=== PATIENT | female | born 1930 | race Two or more races ===

== ENCOUNTER 2017-02-06 11:39 | Inpatient (IN) | payer MEDICARE, MEDICAID ==
[~2017-02-06] VITALS: Ht 165.1 cm; Wt 68.0 kg
[~2017-02-06 11:39] MED LIST: ASPI81TA2 PO; CHOL50006 PO; EZET10TA PO; FAMO-131 PO; LORA1TAB82 PO; PRAM0.253 PO; TRAM50TA2 PO
--- NOTE | 2017-02-06 11:45 | NUR ---
PT TO ER BED 08. [id number] FROM [facility]: EPIGASTRIC PAIN. DENIES N/V. VS WNL. CHANGED TO GOWN. CONNETCED TO MONITOR. CHANGED TO GOWN. SEEN BY ED PROVIDER.
[2017-02-06 12:25] LABS: BASOPHILS # (AUTO) 0.1 /CMM (0.0-0.2); BASOPHILS % (AUTO) 0.7 % (0.0-2.0); EOSINOPHILS # (AUTO) 0.2 /CMM (0.0-0.7); EOSINOPHILS % (AUTO) 1.8 % (0.0-6.0); HEMATOCRIT 38 % (33-45); HEMOGLOBIN 12.7 g/dL (11.5-14.8); LYMPHOCYTES # (AUTO) 2.3 /CMM (0.8-4.8); LYMPHOCYTES % (AUTO) 23.4 % (20.0-44.0); MEAN CORPUSCULAR HEMOGLOBIN 31 PG (26.0-33.0); MEAN CORPUSCULAR HGB CONC 33 g/dl (31.0-36.0); MEAN CORPUSCULAR VOLUME 93 fL (82-100); MONOCYTES # (AUTO) 0.7 /CMM (0.1-1.30); MONOCYTES % (AUTO) 7.4 % (2.0-12.0); NEUTROPHILS # (AUTO) 6.5 /CMM (1.8-8.9); NEUTROPHILS % (AUTO) 66.7 % (43.0-81.0); PLATELET COUNT (AUTO) 266 /CMM (150-450); RDW COEFFICIENT OF VARIATION 12.6 (11.5-15.0); RED BLOOD CELL COUNT(AUTO) 4.07 MIL/uL (4.0-5.2); WHITE BLOOD COUNT (AUTO) 9.8 K/uL (4.3-11.0)
[2017-02-06] MEDS ORDERED: FAMOTIDINE (20 MG) 20 MG TABLET ONE (12:30)
[2017-02-06] MEDS ORDERED: MAG HYDROX/AL HYDROX/SIMETH 30 ML UDC PO ONE (12:30)
[2017-02-06] MEDS ORDERED: FAMOTIDINE/PF INJ 20 MG/2 ML VIAL IV ONE (12:30)
[2017-02-06] MEDS ORDERED: LIDOCAINE VISCOUS 2% UD 15 ML UDC MM ONE (12:30)
[2017-02-06] MEDS ORDERED: MAG HYDROX/AL HYDROX/SIMETH 30 ML UDC ONE (12:31)
[2017-02-06] MEDS ORDERED: LIDOCAINE VISCOUS 2% UD 15 ML UDC ONE (12:31)
--- NOTE | 2017-02-06 12:32 | NUR ---
PEPCID 20MG PO OK PER DR DENNEY.
[2017-02-06 12:35] LABS: CALCIUM, SERUM 9.2 mg/dL (8.5-10.1); CREATININE 0.7 mg/dL (0.6-1.3); POTASSIUM 3.2 mmol/L (3.5-5.1)
[2017-02-06 12:39] LABS: INR 0.98 (0.87-1.13); PROTHROMBIN TIME 10.2 SECS (9.5-12.7)
[2017-02-06 12:41] LABS: ALBUMIN 3.3 g/dL (3.4-5.0); BILIRUBIN,DIRECT 0.1 mg/dL (0.0-0.2); BILIRUBIN,TOTAL 0.3 mg/dL (0.2-1.0); TOTAL PROTEIN, SERUM 6.8 g/dL (6.4-8.2)
[2017-02-06 12:43] LABS: TROPONIN I 0.093 ng/mL (0.00-0.056)
[2017-02-06] MEDS ORDERED: ASPIRIN 325 MG TABLET ONE (13:40)
--- NOTE | 2017-02-06 13:40 | NUR ---
Patient is resting comfortably in bed with eyes closed. Easily aroused. VSS
[2017-02-06] MEDS ORDERED: ASPI-991 PO (13:45)
[2017-02-06] MEDS ORDERED: ATEN25TA PO (13:45)
[2017-02-06] MEDS ORDERED: IRBE1TAB43 PO (13:45)
[2017-02-06] MEDS ORDERED: DONE5TAB3 PO (13:45)
[2017-02-06] MEDS ORDERED: MECL-102 PO (13:45)
[2017-02-06] MEDS ORDERED: ESOM40CA52 PO (13:45)
[2017-02-06] MEDS ORDERED: ASPIRIN 325 MG TABLET PO ONE (14:00)
[2017-02-06] MEDS ORDERED: POTASSIUM CHLORIDE 20 MEQ TAB.PRT.SR PO ONE ×3 (14:30→20:00)
[2017-02-06] MEDS ORDERED: Z GUARD REMEDY 2 OZ OINT TP PRN (15:00)
[2017-02-06] MEDS ORDERED: MAGNESIUM HYDROXIDE 30 ML UDC PO PRN (15:00)
[2017-02-06] MEDS ORDERED: TRAMADOL HCL 50 MG TABLET PO PRN (15:00)
[2017-02-06] MEDS ORDERED: ONDANSETRON HCL/PF 4 MG/2 ML VIAL IVP PRN (15:00)
[2017-02-06] MEDS ORDERED: ACETAMINOPHEN 325 MG TABLET PO PRN (15:00)
[2017-02-06] MEDS ORDERED: MAG HYDROX/AL HYDROX/SIMETH 30 ML UDC PO PRN (15:00)
[2017-02-06] MEDS ORDERED: MECLIZINE HCL 25 MG TABLET PO PRN (15:00)
--- NOTE | 2017-02-06 15:02 | NUR ---
RECEIVED REPORT FROM DIANE LUIS AT ER. PATIENT ARRIVED TO UNIT. PATIENT REQUESTED TO CALL HER GRANDCHILD JEANMARIE AT [phone]. I CALLED, NO ANSWER. WILL TRY AGAIN
[2017-02-06 15:05] VITALS: BP 178/92
--- NOTE | 2017-02-06 15:20 | NUR ---
PATIENT IS ON TELE
[2017-02-06] MEDS: ATENOLOL 25 MG TABLET PO SCH (16:53)
[2017-02-06] MEDS ORDERED: hydrALAZINE HCL 25 MG TABLET PO PRN (17:30)
--- NOTE | 2017-02-06 19:14 | NUR ---
[facility] CALLED WITH CRITICAL VALUE. CALLED DR MCFARLANE. NEW ORDERS RECEIVED. PER DR MCFARLANE, DR GREGORY NEEDS TO BE NOTIFY WELL
--- NOTE | 2017-02-06 19:23 | NUR ---
DR BRI SIMMONS
--- NOTE | 2017-02-06 19:36 | NUR ---
PER DR GREGORY, NLIAMISCBAKARI STRESS TEST FOR 02/07. NPO FROM MIDNIGHT. CONSENT SIGNED
--- NOTE | 2017-02-06 19:38 | NUR ---
REPORT GAVE TO JUNIOR HIGH MATH TEACHER NURSE
--- NOTE | 2017-02-06 19:56 | NUR ---
NOTIFIED DR. GREGORY OF ELEVATED TROPONIN OF 1.970, NO LEXISCAN TOMORROW, RESUME DIET AND NEW ORDER OF KCL 4O MEQ TAB PO X1 NOW. ORDERS NOTED AND CARRIED OUT.
[2017-02-06 20:00] VITALS: BP 134/82
[2017-02-06] MEDS ORDERED: ENOXAPARIN SODIUM 80 MG/0.8 ML DISP.SYRIN SQ ONE (20:00)
--- NOTE | 2017-02-06 20:00 | NUR ---
PATIENT IN BED, ALERT AND ORIENTED X 3, CROATIAN SPEAKING ONLY, CALM, NO SOB, NO RESPIRATORY DISTRESS, NO CHEST PAIN, DENIES ANY OTHER PAIN, TOLERATING ROOM AIR, RIGHT HAND #20 GAUGE SALINE LOCK IS PATENT AND INTACT, ABLE TO AMBULATE TO THE TOILET WITH ASSISTANCE, KEPT SAFE AND COMFORTABLE, CALL LIGHT WITHIN REACH, FAMILY AT THE BEDSIDE.
[2017-02-06 20:34] VITALS: BP 134/82
[2017-02-06] MEDS: LOSARTAN POTASSIUM 50 MG TABLET PO SCH (20:36)
[2017-02-06] MEDS: CARVEDILOL 6.25 MG TABLET PO SCH (20:37)
--- NOTE | 2017-02-06 20:39 | NUR ---
COREG 6.25 MG PO HELD, HR 57
[2017-02-06] MEDS: ATORVASTATIN 40 MG TABLET PO SCH (21:09)
[2017-02-06] MEDS: HYDROCODONE/APAP 5/325MG 1 EACH TABLET PO PRN (23:21)
[2017-02-07] VITALS (48 sets, daily range): BP systolic 106–153; BP diastolic 51–105
--- NOTE | 2017-02-07 00:24 | NUR ---
PATIENT IS ALERT AND AWAKE, RECEIVED NORCO FOR PAIN TO RIGHT UPPER BACK, VERBALIZED RELIEF FROM PAIN. WILL CONTINUE TO MONITOR.
[2017-02-07] MEDS: HYDROCODONE/APAP 5/325MG 1 EACH TABLET PO PRN (04:54)
--- NOTE | 2017-02-07 06:26 | NUR ---
CORRECTION TO VITAL SIGNS 02/07/17 0000, O2 SAT IS 96%
--- NOTE | 2017-02-07 06:48 | NUR ---
PATIENT HAS NAUSEA EPISODE X1, NO VOMITING, RETCHING. GIVEN ZOFRAN 4MG IVP PRN, FALL RISK, GETTING OUT OF BED UNASSISTED. MADE COMFORTABLE, CALL LIGHT WITHIN REACH.
[2017-02-07 06:50] LABS: BASOPHILS % (AUTO) 0.2 % (0.0-2.0); EOSINOPHILS # (AUTO) 0.2 /CMM (0.0-0.7); EOSINOPHILS % (AUTO) 2.1 % (0.0-6.0); HEMATOCRIT 40 % (33-45); HEMOGLOBIN 13.7 g/dL (11.5-14.8); LYMPHOCYTES # (AUTO) 2.5 /CMM (0.8-4.8); LYMPHOCYTES % (AUTO) 22.1 % (20.0-44.0); MEAN CORPUSCULAR HEMOGLOBIN 32 PG (26.0-33.0); MEAN CORPUSCULAR HGB CONC 34 g/dl (31.0-36.0); MEAN CORPUSCULAR VOLUME 94 fL (82-100); MONOCYTES # (AUTO) 0.8 /CMM (0.1-1.30); MONOCYTES % (AUTO) 7.3 % (2.0-12.0); NEUTROPHILS # (AUTO) 7.8 /CMM (1.8-8.9); NEUTROPHILS % (AUTO) 68.3 % (43.0-81.0); PLATELET COUNT (AUTO) 267 /CMM (150-450); RDW COEFFICIENT OF VARIATION 13.3 (11.5-15.0); WHITE BLOOD COUNT (AUTO) 11.4 K/uL (4.3-11.0)
--- NOTE | 2017-02-07 06:57 | NUR ---
PATIENT IN BED, ALERT AND AWAKE, RESTING, NOT IN APPARENT DISTRESS, PROVIDED EMESIS BAG BY THE BEDSIDE, KEPT SAFE AND COMFORTABLE, CALL LIGHT WITHIN REACH.
--- NOTE | 2017-02-07 07:22 | NUR ---
RN OPEN NOTES RECEIVED REPORT FROM DISHWASHER PREPARER NURSE. WILL CONTINUE TO MONITOR AND ASSESS PATIENT
[2017-02-07 07:24] LABS: CALCIUM, SERUM 9.1 mg/dL (8.5-10.1); CREATININE 0.8 mg/dL (0.6-1.3); MAGNESIUM 1.8 mg/dL (1.8-2.4)
[2017-02-07 07:26] LABS: THYROID STIMULATING HORMONE 3.449 uIU/mL (0.358-3.74)
[2017-02-07] MEDS: PANTOPRAZOLE 40 MG TABLET.DR PO SCH (07:30)
--- NOTE | 2017-02-07 07:34 | NUR ---
SPOKE WITH DR GREGORY REGRADING CRITICAL VALUE TROPONIN. NO NEW ORDERS RECEIVED. DR GREGORY WILL SEE THE PATIENT TODAY
[2017-02-07 07:51] LABS: TROPONIN I 7.595 ng/mL (0.00-0.056)
--- NOTE | 2017-02-07 08:52 | NUR ---
GRANDDAUGHTER JEANMARIE NOTIFIED REGARDING TRANSFERRING THE PATIENT TO ICU
[2017-02-07] MEDS ORDERED: IRBESARTAN PO SCH (09:00)
[2017-02-07] MEDS ORDERED: HYDROCHLOROTHIAZIDE PO SCH (09:00)
[2017-02-07] MEDS ORDERED: HYDROCHLOROTHIAZIDE 25 MG TABLET PO SCH (09:00)
[2017-02-07] MEDS ORDERED: NTG 50 MG/D5W250 ML BOTTL 50 MG/250 ML BTL IV SCH (09:00)
[2017-02-07] MEDS: DONEPEZIL 5 MG TABLET PO SCH (09:00)
[2017-02-07] MEDS: ATENOLOL 25 MG TABLET PO SCH (09:00)
[2017-02-07] MEDS ORDERED: IRBESARTAN (150MG) 150 MG TABLET PO SCH (09:00)
[2017-02-07] MEDS ORDERED: ASPIRIN EC 81 MG TABLET.DR PO SCH (09:00)
--- NOTE | 2017-02-07 09:05 | NUR ---
REPORT GAVE TO JANELLE MCFARLANE IN ICU
--- NOTE | 2017-02-07 09:20 | NUR ---
PATIENT TRANSPORTED TO ICU. SINUS RHYTHM ON TRANSFER.
--- NOTE | 2017-02-07 09:30 | NUR ---
high school agriculture teacher received pt from 3w stable complains of epigastric pain11/25 , ao x3, started pt on 2l nc o2 elevate hob reposition pt, will start nitro iv drip as ordered and heparine once med is available from pharmacy, pt does not want pain med, explained pt the benefits of pain med for her heart condition, pt still refused will continue to monitor. 0950 started pt on nitro drip and bolus of heparine and the drip will be given by Grecia Rn, for continuity of care.
[2017-02-07] MEDS ORDERED: NTG 50 MG/D5W250 ML BOTTL 250 ML IV PRN (10:00)
[2017-02-07] MEDS ORDERED: HEPARIN SODIUM, PORCINE 5000 UNITS/1 ML VIAL IV ONE (10:00)
[2017-02-07] MEDS: HEPARIN INFUSION/D5W 500 ML IV PRN (10:06)
[2017-02-07] MEDS: LORAZEPAM 1 MG TABLET PO SCH (10:15)
[2017-02-07] MEDS: CARVEDILOL 6.25 MG TABLET PO SCH ×2 (10:15→20:20)
[2017-02-07] MEDS: LOSARTAN POTASSIUM 50 MG TABLET PO SCH ×2 (10:15→17:48)
[2017-02-07] MEDS ORDERED: IV SET PRIMARY PUMP SET 1 EA INFUS.SET MC ONE (10:18)
[2017-02-07] MEDS: IV NS 0.9% 1,000 ML IV PRN (10:23)
[2017-02-07] MEDS ORDERED: MORPHINE SULFATE INJ 2 MG/ML DISP.SYRIN IV PRN (11:30)
--- NOTE | 2017-02-07 11:41 | NUR ---
PROFESSIONAL BENEFITS SALES CONSULTANT Dr. Lala contacted regarding pt condition and latest labs troponin critical trending down, ordered to continue with the same orders and meds and he will see pt once he comes to the hospital, pt in bed resting denies of any pain at this time, iv meds are infusing as ordered will continue to monitor. pt voided 200cc yellow clear urine. fall precautions taken call light w/ in reach family granddaughter at bedside.
--- NOTE | 2017-02-07 18:44 | NUR ---
02/07/17 PER CARDIO- DR GREGORY PT NEEDS HIGHER LEVEL OF CARE - HEART CATH, PT IS SCHEDULE AT 1530, ARRANGED TRANSPORTATION VIA [facility] LOGISTICS ANALYTICS MANAGER AT 1230, NURSE TO GIVE REPORT TO [phone].
--- NOTE | 2017-02-07 18:45 | NUR ---
SALES ADVISORY MANAGER PT IN BED ATE DINNER NO DISTRESS NOTED PT DOES NOT COMPLAIN OF ANY PAIN AT THIS TIME OR DURING SHIFT, ALL PT NEEDS MEET PT REFUSED BED BATH, WILL CONTINUE TO MONITOR FALL PRECAUTION TAKEN CALL LIGHT W/ IN REACH WILL CONTINUE TO MONITOR.
--- NOTE | 2017-02-07 20:37 | NUR ---
CYBER SECURITY MANAGER NOTES RECEIVED PT IN BED, AWAKE, A/O X4. TELE READS SR AT 67 BPM. ON O2 VIA NC AT 2LPM, CHRIS WELL, PT DENIES CHEST PAIN. IV SITES AT RIGHT HAND, RIGHT WRIST AND LEFT AC, RUNNING HEPARIN, NITROGLYCERIN AND NS. SKIN IS INTACT. GRANDDAUGHTER AT BEDSIDE. ALL QUESTIONS ANSWERED AND NEEDS MET, CALL LIGHT WITHIN REACH, SIDE RAILS X2.
[2017-02-07] MEDS: ATORVASTATIN 40 MG TABLET PO SCH (21:15)
[2017-02-08] VITALS (14 sets, daily range): BP systolic 112–148; BP diastolic 44–96
[2017-02-08 05:01] LABS: BASOPHILS % (AUTO) 0.2 % (0.0-2.0); EOSINOPHILS # (AUTO) 0.2 /CMM (0.0-0.7); EOSINOPHILS % (AUTO) 1.7 % (0.0-6.0); HEMATOCRIT 37 % (33-45); HEMOGLOBIN 12.3 g/dL (11.5-14.8); LYMPHOCYTES % (AUTO) 25.2 % (20.0-44.0); MEAN CORPUSCULAR HEMOGLOBIN 32 PG (26.0-33.0); MEAN CORPUSCULAR HGB CONC 34 g/dl (31.0-36.0); MEAN CORPUSCULAR VOLUME 94 fL (82-100); MONOCYTES # (AUTO) 0.9 /CMM (0.1-1.30); MONOCYTES % (AUTO) 7.5 % (2.0-12.0); NEUTROPHILS # (AUTO) 7.8 /CMM (1.8-8.9); NEUTROPHILS % (AUTO) 65.4 % (43.0-81.0); PLATELET COUNT (AUTO) 240 /CMM (150-450); RDW COEFFICIENT OF VARIATION 13.7 (11.5-15.0); RED BLOOD CELL COUNT(AUTO) 3.88 MIL/uL (4.0-5.2); WHITE BLOOD COUNT (AUTO) 11.9 K/uL (4.3-11.0)
[2017-02-08] MEDS: IV NS 0.9% 1,000 ML IV PRN (05:05)
[2017-02-08 05:15] LABS: CALCIUM, SERUM 8.8 mg/dL (8.5-10.1); CREATININE 0.7 mg/dL (0.6-1.3); POTASSIUM 3.5 mmol/L (3.5-5.1)
--- NOTE | 2017-02-08 07:57 | NUR ---
ICU/RN INITIAL NOTES,AM RECEIVED REPORT FROM NIGHT NURSE. PT RESTING IN BED COMFORTABLY, ALERT, AWAKE, ORIENTED. PT SIERRA LEONEAN SPEAKING ONLY. PT ON NASAL CANULA, 2 LITERS, NO DISTRESS NOTED AT THIS TIME. PT ON TELE, SINUS. PT SCHEDULED TO BE TRANSFERRED TO [facility] FOR CARDIAC CATH, WILL PREPARE ALL DISCHARGE PAPERS. PT ON HEPARIN DRIP, NITRO DRIP AND IV FLUIDS ORDERED. WILL TITRATE APPROPRIATE PER ORDERS. ALL NEEDS WILL BE MET, SAFETY MEASURES TAKEN, BED IN LOW POSITION, SIDE RIALS UP, CALL LIGHT WITHIN REACH.
[2017-02-08] MEDS: LOSARTAN POTASSIUM 50 MG TABLET PO SCH (08:17)
[2017-02-08] MEDS: LORAZEPAM 1 MG TABLET PO SCH (08:18)
[2017-02-08] MEDS: DONEPEZIL 5 MG TABLET PO SCH (08:18)
[2017-02-08] MEDS: PANTOPRAZOLE 40 MG TABLET.DR PO SCH (08:18)
[2017-02-08] MEDS: CARVEDILOL 6.25 MG TABLET PO SCH (08:19)
[2017-02-08] MEDS: HEPARIN INFUSION/D5W 500 ML IV PRN (08:26)
[2017-02-08] MEDS ORDERED: ASPIRIN EC 81 MG TABLET.DR PO SCH (09:00)
--- NOTE | 2017-02-08 12:30 | NUR ---
ICU/RN: REPORT ENDORSED TO JANELLE LAWRENCE AT [facility]. PT WILL BE TRANSFERRED THERE VIA AMBULANCE. WILL COMPLETE ALL D/C PAPERS.
--- NOTE | 2017-02-08 13:29 | NUR ---
ICU/RN: AMBULANCE AT BEDSIDE TO TRANSFER PT TO [facility]. REPORT ENDORSED TO RN, PT WILL BE TRANSFERRED VIA ACLS GUIDELINES WITH HEPARIN AND NITRO INFUSING ORDERED. ALL FORMS SINGED, GRANDDAUGHTER CALLED TO INFORM OF TRANSFER HOWEVER NO ANSWER. BELONGINGS CHECKED AND FORM SIGNED AND ALL SENT WITH PT. PT CONTINUES TO BE NPO FOR PROCEDURE. ALL NEEDS ATTENDED TO, SAFETY MEASURES TAKEN.
== END 2017-02-08 13:05 | disposition short-term general hospital (02) | DRG 281 ==
LOC: ER 11:40 → TELE 14:14 → ICU 02-07 09:32
PROVIDERS: ADMIT Contractor; ATTEND Contractor
DX: I21.4 Non-ST elevation (NSTEMI) myocardial infarction (principal); E44.1 Mild protein-calorie malnutrition; I10 Essential (primary) hypertension; E78.5 Hyperlipidemia, unspecified; K57.90 Diverticulosis of intestine, part unspecified, without perforation or abscess without bleeding; E87.6 Hypokalemia; K21.9 Gastro-esophageal reflux disease without esophagitis; Z79.899 Other long term (current) drug therapy; E88.09 Other disorders of plasma-protein metabolism, not elsewhere classified; Z68.25 Body mass index [BMI] 25.0-25.9, adult; I25.10 Atherosclerotic heart disease of native coronary artery without angina pectoris
CPT/HCPCS: 36415; 71010-TC; 80048-TC; 80061-TC; 80076-TC; 83690-TC; 83735-TC; 84100-TC; 84443-TC; 84484-TC; 85025-TC; 85730-TC; 93307-TC; 94799-TC; A4606; J1644; J1650; J2405; J3490; J7030; Z7610

== ENCOUNTER 2017-02-22 16:18 | Inpatient (IN) | payer MEDICARE, MEDICAID ==
[~2017-02-22] VITALS: Ht 152.4 cm; Wt 72.1 kg
[~2017-02-22 16:18] MED LIST changes: +ASPI-991 PO; -ASPI81TA2 PO; +ATEN25TA PO; -CHOL50006 PO; +DONE5TAB3 PO; +ESOM40CA52 PO; -EZET10TA PO; -FAMO-131 PO; +IRBE1TAB43 PO; +MECL-102 PO; -PRAM0.253 PO
--- NOTE | 2017-02-22 16:27 | NUR ---
Bibdtr- pt was sent by armored car driver for eval. Patient is aao4, appears in no apparent distress, respiration even and unlabored. No chest pain, nno sob. Skin is warm to touch and non diaphoretic. Patient is afebrile. vss. will cont to monitor
--- NOTE | 2017-02-22 16:40 | NUR ---
iv accessed to [facility]. blood sample sent to lab
[2017-02-22 16:52] LABS: BASOPHILS % (AUTO) 0.4 % (0.0-2.0); EOSINOPHILS # (AUTO) 0.3 /CMM (0.0-0.7); EOSINOPHILS % (AUTO) 2.9 % (0.0-6.0); HEMATOCRIT 39 % (33-45); HEMOGLOBIN 13.1 g/dL (11.5-14.8); LYMPHOCYTES # (AUTO) 2.7 /CMM (0.8-4.8); LYMPHOCYTES % (AUTO) 25.8 % (20.0-44.0); MEAN CORPUSCULAR HEMOGLOBIN 32 PG (26.0-33.0); MEAN CORPUSCULAR HGB CONC 34 g/dl (31.0-36.0); MEAN CORPUSCULAR VOLUME 93 fL (82-100); MONOCYTES # (AUTO) 0.8 /CMM (0.1-1.30); MONOCYTES % (AUTO) 7.9 % (2.0-12.0); NEUTROPHILS # (AUTO) 6.8 /CMM (1.8-8.9); PLATELET COUNT (AUTO) 319 /CMM (150-450); RDW COEFFICIENT OF VARIATION 12.2 (11.5-15.0); RED BLOOD CELL COUNT(AUTO) 4.12 MIL/uL (4.0-5.2); WHITE BLOOD COUNT (AUTO) 10.6 K/uL (4.3-11.0)
[2017-02-22] MEDS ORDERED: MAG HYDROX/AL HYDROX/SIMETH 30 ML UDC ONE (16:56)
[2017-02-22] MEDS ORDERED: MAG HYDROX/AL HYDROX/SIMETH 30 ML UDC PO ONE (17:00)
[2017-02-22 17:05] LABS: TROPONIN I < 0.017 ng/mL (0.00-0.056)
[2017-02-22 17:08] LABS: INR 0.96 (0.87-1.13)
[2017-02-22 17:14] LABS: ALANINE AMINOTRANSFERASE 21 U/L (12-78); ALBUMIN 3.4 g/dL (3.4-5.0); ALKALINE PHOSPHATASE 69 U/L (46-116); ASPARTATE AMINOTRANSFERASE 15 U/L (15-37); B-TYPE NATRIURETIC PEPTIDE 776 PG/ML (0-125); BILIRUBIN,TOTAL 0.3 mg/dL (0.2-1.0); CALCIUM, SERUM 9.7 mg/dL (8.5-10.1); CARBON DIOXIDE 30 mmol/L (21-32); CHLORIDE 102 mmol/L (98-107); CREATININE 0.7 mg/dL (0.6-1.3); GLUCOSE 115 mg/dL (74-106); POTASSIUM 3.6 mmol/L (3.5-5.1); SODIUM SERUM 137 mmol/L (136-145); TOTAL PROTEIN, SERUM 7.3 g/dL (6.4-8.2); UREA NITROGEN, BLOOD 11 mg/dL (7-18)
[2017-02-22] MEDS ORDERED: IV NS 0.9% 250 ML IV ONE (17:44)
[2017-02-22] MEDS ORDERED: IOHEXOL-300 100 ML VIAL IV ONE (17:44)
--- NOTE | 2017-02-22 17:48 | NUR ---
Patient is resting comfortably in bed .VSS
--- NOTE | 2017-02-22 18:24 | NUR ---
PAGED DR WHITAKER FOR CALL BACK
--- NOTE | 2017-02-22 19:03 | NUR ---
REPORT GIVEN TO NURSE MAEVE FOR ALBERTA
[2017-02-22 19:18] LABS: APPEARANCE,URINE Clear (CLEAR); BILIRUBIN,URINE Negative (NEGATIVE); BLOOD, URINE Small Ery/uL (NEGATIVE); COLOR,URINE Yellow (YELLOW); KETONES,URINE Negative (NEGATIVE); LEUKOCYTE ESTERASE ,URINE Small (NEGATIVE); NITRITE, URINE Negative (NEGATIVE); PROTEIN,URINE Negative (NEGATIVE); UGLUCOSE Negative (NEGATIVE); UROBILINOGEN,URINE 0.2 EU/dL (0.2)
[2017-02-22 19:28] LABS: BACTERIA,URINE Few /HPF (None Seen); MUCUS,URINE Few /LPF (None Seen); SQUAMOUS EPITHELIAL CELL,UR Moderate /HPF (None Seen); URINE AMORPHOUS URATE Few /HPF (None Seen)
--- NOTE | 2017-02-22 20:01 | NUR ---
317 TELE NEGATIVE PRESSURE ISOLATION ROOM
--- NOTE | 2017-02-22 20:21 | NUR ---
PT LYING IN BED IN NO APPARENT DISTRESS, PT ON MONITOR, VSS, WILL CONTINUE TO MONITOR.
[2017-02-22] MEDS ORDERED: NITROGLYCERIN PACKET 1 GM PACKET TD PRN (21:00)
[2017-02-22] MEDS ORDERED: ZOLPIDEM TARTRATE 5 MG TABLET PO PRN (21:00)
[2017-02-22] MEDS ORDERED: ACETAMINOPHEN 325 MG TABLET PO PRN (21:00)
[2017-02-22] MEDS ORDERED: NITROGLYCERIN 0.4 MG/TAB BOTTLE SL PRN (21:00)
[2017-02-22] MEDS ORDERED: MAGNESIUM HYDROXIDE 30 ML UDC PO PRN (21:00)
[2017-02-22] MEDS ORDERED: MECLIZINE HCL 25 MG TABLET PO PRN (21:00)
[2017-02-22] MEDS ORDERED: MAG HYDROX/AL HYDROX/SIMETH 30 ML UDC PO PRN (21:00)
[2017-02-22] MEDS ORDERED: Z GUARD REMEDY 2 OZ OINT TP PRN (21:00)
[2017-02-22] MEDS ORDERED: HYDROCODONE/APAP 5/325MG 1 EACH TABLET PO PRN (21:00)
[2017-02-22] MEDS ORDERED: MORPHINE SULFATE INJ 2 MG/ML DISP.SYRIN IV PRN (21:00)
[2017-02-22] MEDS ORDERED: ENOXAPARIN SODIUM 40 MG/0.4 ML DISP.SYRIN SQ ONE (21:04)
[2017-02-22 21:30] VITALS: BP 129/74
--- NOTE | 2017-02-22 21:30 | NUR ---
CRABBER - ADMISSION NOTES RECEIVED PATIENT FROM E.R. ALERT AND ORIENTED X3 SIERRA LEONEAN SPEAKING BUT UNDERSTANDS A LITTLE BIT OF DIVEHI. NO S/S OF SOB NOTED. PATIENT DENIES ANY CHEST PAIN. BLUE PHONE USED AND SPOKE TO AMADA #[id number]. ADMISSION HISTORY. INSTRUCTED PATIENT TO USE CALL LIGHT WHEN ASSISTANCE IS NEEDED. TELE READING OF SR 80'S. WILL CONTINUE TO MONITOR PATIENT.
[2017-02-22] MEDS: ENOXAPARIN SODIUM 40 MG/0.4 ML DISP.SYRIN SQ SCH (22:14)
[2017-02-23] VITALS: BP 99/48
[2017-02-23 01:30] VITALS: BP 122/67
[2017-02-23 03:12] LABS: BASOPHILS % (AUTO) 0.4 % (0.0-2.0); EOSINOPHILS # (AUTO) 0.4 /CMM (0.0-0.7); EOSINOPHILS % (AUTO) 3.8 % (0.0-6.0); HEMATOCRIT 39 % (33-45); HEMOGLOBIN 13.1 g/dL (11.5-14.8); LYMPHOCYTES % (AUTO) 25.4 % (20.0-44.0); MEAN CORPUSCULAR HEMOGLOBIN 32 PG (26.0-33.0); MEAN CORPUSCULAR HGB CONC 34 g/dl (31.0-36.0); MEAN CORPUSCULAR VOLUME 94 fL (82-100); MONOCYTES # (AUTO) 0.8 /CMM (0.1-1.30); MONOCYTES % (AUTO) 6.8 % (2.0-12.0); NEUTROPHILS # (AUTO) 7.4 /CMM (1.8-8.9); NEUTROPHILS % (AUTO) 63.6 % (43.0-81.0); PLATELET COUNT (AUTO) 309 /CMM (150-450); RDW COEFFICIENT OF VARIATION 13.6 (11.5-15.0); RED BLOOD CELL COUNT(AUTO) 4.12 MIL/uL (4.0-5.2); WHITE BLOOD COUNT (AUTO) 11.7 K/uL (4.3-11.0)
[2017-02-23 03:26] LABS: ALANINE AMINOTRANSFERASE 22 U/L (12-78); ALBUMIN 3.1 g/dL (3.4-5.0); ALKALINE PHOSPHATASE 63 U/L (46-116); ASPARTATE AMINOTRANSFERASE 13 U/L (15-37); BILIRUBIN,TOTAL 0.4 mg/dL (0.2-1.0); CALCIUM, SERUM 9.3 mg/dL (8.5-10.1); CARBON DIOXIDE 28 mmol/L (21-32); CHLORIDE 103 mmol/L (98-107); CREATININE 0.8 mg/dL (0.6-1.3); GLUCOSE 114 mg/dL (74-106); MAGNESIUM 1.7 mg/dL (1.8-2.4); PHOSPHORUS 3.3 mg/dL (2.5-4.9); POTASSIUM 3.7 mmol/L (3.5-5.1); SODIUM SERUM 140 mmol/L (136-145); TOTAL PROTEIN, SERUM 6.7 g/dL (6.4-8.2); UREA NITROGEN, BLOOD 11 mg/dL (7-18)
--- NOTE | 2017-02-23 07:25 | NUR ---
CUSTOM SEAMSTRESS OPEN NOTES RECEIVED REPORT FROM GEAR STRAIGHTENER NURSE. PATIENT IS IN BED, AOX3. MONGOLIAN PATIENT. NO SIGNS AND SYMPTOMS OF DISTRESS. PATIENT IS ON TELE MONITORING SR WITH PVC 65 BMP. WILL CONTINUE TO EVALUATE AND MONITOR PATIENT CONDITION.
[2017-02-23 08:00] VITALS: BP 125/70
[2017-02-23] MEDS ORDERED: ATENOLOL 25 MG TABLET PO SCH (09:00)
[2017-02-23] MEDS: LORAZEPAM 1 MG TABLET PO SCH (09:04)
[2017-02-23] MEDS: ASPIRIN EC 81 MG TABLET.DR PO SCH (09:04)
[2017-02-23] MEDS: DONEPEZIL 5 MG TABLET PO SCH (09:05)
[2017-02-23] MEDS: PANTOPRAZOLE 40 MG VIAL IV SCH (09:05)
[2017-02-23] MEDS ORDERED: Magnesium 1 GM/2 ML VIAL IV ONE (10:30)
[2017-02-23] MEDS ORDERED: Magnesium 1GM/D5W 100ML PREMIX PIGGYBACK IV ONE (11:00)
[2017-02-23] MEDS ORDERED: IRBESARTAN PO SCH (11:30)
[2017-02-23] MEDS ORDERED: HYDROCHLOROTHIAZIDE PO SCH (11:30)
[2017-02-23 12:00] VITALS: BP 105/58
[2017-02-23] MEDS ORDERED: IV SET PRIMARY PUMP SET 1 EA INFUS.SET MC ONE (12:25)
[2017-02-23] MEDS ORDERED: IV NS 0.9% 250 ML IV ONE (12:25)
[2017-02-23] MEDS ORDERED: SECONDARY IV SET 1 EA INFUS.SET MC ONE (12:26)
[2017-02-23] MEDS ORDERED: SET RED CAP 1 EA INFUS.SET MC ONE (12:26)
[2017-02-23] MEDS: Magnesium 1GM/D5W 100ML PREMIX 100 ML IV SCH ×2 (12:34→13:37)
[2017-02-23] MEDS: CLOPIDOGREL BISULFATE 75 MG TABLET PO SCH (13:37)
[2017-02-23 16:00] VITALS: BP 111/64
--- NOTE | 2017-02-23 18:41 | NUR ---
RN NOTES PATIENT IS IN BED, AWAKE, ALERT AND ORIENTED TO NAME, TIME AND PLACE. PATIENT SPEAKS KHMER ONLY. MAGNESIUM REPLACED. URINE CULTURE COLLECTED. NO SIGNIFICANT CHANGES NOTED THROUGHOUT MY SHIFT. ALL NEEDS ANTICIPATED. NURSING CARE RENDERED. KEPT CLEAN AND DRY. WILL ENDORSE TO THE LOCAL BULK DRIVER NURSE.
--- NOTE | 2017-02-23 19:30 | NUR ---
RN NOTE; RECEIVED PT IN BED AWAKE AND ALERT. BREATHING EVENLY. NO SOB. NAD. NO C/O CHEST PAIN. NEEDS ATTENDED . ASSISTED W/ ADLS. CALL LIGHT WITHIN REACH. WILL CONT TO MONITOR.
[2017-02-23 20:00] VITALS: BP 114/73
[2017-02-23] MEDS: CARVEDILOL 6.25 MG TABLET PO SCH (21:22)
[2017-02-23] MEDS: ENOXAPARIN SODIUM 40 MG/0.4 ML DISP.SYRIN SQ SCH (21:26)
[2017-02-24] VITALS: BP 125/60
[2017-02-24 04:00] VITALS: BP 101/46
--- NOTE | 2017-02-24 06:29 | NUR ---
RN NOTE; PT IN BED SLEEPING , AROUSES EASILY. BREATHING EVENLY/. NO SOB. DENIED CHEST PAIN. W/ OCCASIONAL C/O MILD ABD PAIN. HEART MONITOR IN PLACE READING SR. NO ACUTE CHANGES OVER THE NIGHT. NEEDS ATTENDED. CALL LIGHT WITHIN REACH. WILL CONT TO MONITOR AND WILL ENDORSE TO AM SHIFT FOR ALBERTA .
[2017-02-24 06:51] LABS: BASOPHILS % (AUTO) 0.3 % (0.0-2.0); EOSINOPHILS # (AUTO) 0.3 /CMM (0.0-0.7); EOSINOPHILS % (AUTO) 3.6 % (0.0-6.0); HEMATOCRIT 40 % (33-45); HEMOGLOBIN 13.5 g/dL (11.5-14.8); LYMPHOCYTES # (AUTO) 2.8 /CMM (0.8-4.8); LYMPHOCYTES % (AUTO) 28.8 % (20.0-44.0); MEAN CORPUSCULAR HEMOGLOBIN 32 PG (26.0-33.0); MEAN CORPUSCULAR HGB CONC 34 g/dl (31.0-36.0); MEAN CORPUSCULAR VOLUME 95 fL (82-100); MONOCYTES # (AUTO) 0.6 /CMM (0.1-1.30); MONOCYTES % (AUTO) 6.5 % (2.0-12.0); NEUTROPHILS # (AUTO) 5.9 /CMM (1.8-8.9); NEUTROPHILS % (AUTO) 60.8 % (43.0-81.0); PLATELET COUNT (AUTO) 332 /CMM (150-450); RDW COEFFICIENT OF VARIATION 13.6 (11.5-15.0); RED BLOOD CELL COUNT(AUTO) 4.23 MIL/uL (4.0-5.2); WHITE BLOOD COUNT (AUTO) 9.6 K/uL (4.3-11.0)
[2017-02-24 06:55] LABS: CALCIUM, SERUM 9.4 mg/dL (8.5-10.1); CARBON DIOXIDE 31 mmol/L (21-32); CHLORIDE 102 mmol/L (98-107); CREATININE 0.8 mg/dL (0.6-1.3); GLUCOSE 112 mg/dL (74-106); PHOSPHORUS 3.5 mg/dL (2.5-4.9); POTASSIUM 4.3 mmol/L (3.5-5.1); SODIUM SERUM 140 mmol/L (136-145); UREA NITROGEN, BLOOD 11 mg/dL (7-18)
--- NOTE | 2017-02-24 07:12 | NUR ---
RN OPEN NOTES RECEIVED REPORT FROM CAUSTICS LOADER NURSE. PATIENT IS IN BED, AWAKE AND ALERT. DANISH SPEAKER ONLY. PATIENT IS ON TELE MONITOR SINUS RHYTHM 61. BED IN LOW POSITION, LOCKED AND 2 SIDE RAILS ARE UP. IV SITE IS INTACT AND PATENT. PENDING GI CONSULT. WILL CONTINUE TO MONITOR AND ASSESS PATIENT DURING MY SHIFT.
[2017-02-24] MEDS: PANTOPRAZOLE 40 MG VIAL IV SCH (07:57)
[2017-02-24 08:00] VITALS: BP 135/66
[2017-02-24] MEDS: CARVEDILOL 6.25 MG TABLET PO SCH ×2 (08:00→20:43)
[2017-02-24] MEDS: DONEPEZIL 5 MG TABLET PO SCH (08:00)
[2017-02-24] MEDS: ASPIRIN EC 81 MG TABLET.DR PO SCH (08:00)
[2017-02-24] MEDS: CLOPIDOGREL BISULFATE 75 MG TABLET PO SCH (08:00)
[2017-02-24] MEDS: LORAZEPAM 1 MG TABLET PO SCH (08:00)
--- NOTE | 2017-02-24 12:20 | NUR ---
Patient felt nauseated. Zofran administered
[2017-02-24] MEDS: ONDANSETRON HCL/PF 4 MG/2 ML VIAL IVP PRN ×2 (12:22→19:53)
--- NOTE | 2017-02-24 12:35 | NUR ---
Left a voice message to Dr. Gentry Mclaughlin at his office to verify that he is aware of the consult and estimated time per patient request.
--- NOTE | 2017-02-24 12:38 | NUR ---
Dr Gentry Mclaughlin office called back and said that Dr Mclaughlin is not residential sales consultant today.
--- NOTE | 2017-02-24 12:45 | NUR ---
Pharmacy called in regarding to home medication that we can't provide. spoke to the granddaughter, Corrie and asked her to bring all of her home medications as she wasn't able to find the medication.
[2017-02-24 16:00] VITALS: BP 124/71
--- NOTE | 2017-02-24 19:05 | NUR ---
MECHANICAL TECHNICIAN NOTES: RECEIVED PT AWAKE AND A/O X3 IN BED WITH AT BEDSIDE. PT IS ON TELE AND IS SINUS RHYTHM 69. CALL LIGHT WITHIN PT'S REACH. BED KEPT IN LOCKED, LOWEST POSITION, AND SIDE RAILS X 2 UP. PT HAS IV ON R HAND 20G AND IS PATENT AND INTACT. PT IS TO BE INFUSED WITH IV D5/0.9%NACL 1,000 ML AT 75ML/HR. NO SIGNS OR SYMPTOMS OF DISTRESS NOTED AT THIS TIME. PT HAS HER OWN INSULIN PUMP. WILL CONTINUE TO MONITOR PT. Addendum: 02/25/17 at 0305 by HARSHAD ZHU RN WRONG CHARTING. WRONG PATIENT. PLEASE DISREGARD
--- NOTE | 2017-02-24 19:10 | NUR ---
ELECTROTYPE CASTER NOTES: RECEIVED PT AWAKE AND IS A/O X3. PT IS ONLY ALGERIAN SPEAKING BUT CAN UNDERSTAND/SPEAK A LITTLE BIT OF [place]. CALL LIGHT WITHIN PT'S REACH. PT HAS R AC 18G AND IS HEP LOCK AT THE MOMENT. BED KEPT IN LOCKED, LOWEST POSITION, AND SIDE RAILS X 2 UP. PT VOICED SHE HAD A HEADACHE AND WOULD LIKE SOMETHING FOR N/V. WILL CONTINUE TO MONITOR PT.
--- NOTE | 2017-02-24 19:29 | NUR ---
RN NOTES GAVE REPORT TO LOCKSTITCH BINDER NURSE. PATIENT IS IN BED, AWAKE, ALERT AND ORIENTED TO NAME, TIME AND PLACE. PATIENT SPEAKS TUNISIAN ONLY. NO SIGNIFICANT CHANGES NOTED THROUGHOUT MY SHIFT. ALL NEEDS ANTICIPATED. NURSING CARE RENDERED. KEPT CLEAN AND DRY. GI CONSULT BY DR COX. EGD MONDAY AT 9:30AM
--- NOTE | 2017-02-24 19:53 | NUR ---
MANUFACTURING MANAGEMENT ASSOCIATE NOTES: PT IS ON TELE MONITOR AND IS SINUS RHYTHM 61. PT ALSO REQUESTED FOR ZOFRAN 4MG IVP AND TYLENOL 650MG FOR HER HEADACHE. WILL CONTINUE TO MONITOR PT.
[2017-02-24 20:00] VITALS: BP_SYST 109; BP_SYST 143; BP_DIAS 59; BP_DIAS 64
[2017-02-24 20:25] VITALS: BP 109/59
[2017-02-24] MEDS: ENOXAPARIN SODIUM 40 MG/0.4 ML DISP.SYRIN SQ SCH (20:44)
--- NOTE | 2017-02-24 20:52 | NUR ---
CLAUDETTE LUIS NOTES: BLOOD SUGAR WAS 125. WILL CONTINUE TO MONITOR. Addendum: 02/25/17 at 0305 by HARSHAD ZHU RN WRONG CHARTING. WRONG PATIENT. PLEASE DISREGARD.
[2017-02-25] VITALS (7 sets, daily range): BP systolic 99–144; BP diastolic 57–66
--- NOTE | 2017-02-25 00:01 | NUR ---
CLAUDETTE LUIS NOTES: BLOOD SUGAR WAS 190. WILL CONTINUE TO MONITOR PT. Addendum: 02/25/17 at 0306 by HARSHAD ZHU RN WRONG CHARTING. WRONG PATIENT. PLEASE DISREGARD.
--- NOTE | 2017-02-25 07:25 | NUR ---
telecommunications analyst closing notes: all needs were attended and anticipated for. no signs or symptoms of distress noted. pt kept clean, dry, and comfortable. call light within pt's reach. bed kept in locked, lowest position, and side rails x 2 up. pt has iv r ac18g and is patent and intact and is currently hep lock. endorsed to am nurse for serenity.
--- NOTE | 2017-02-25 08:00 | NUR ---
ms rn received on bed, awake,alert,oriented x3,not in any form of distress, respirations even and unlabored,no sob noted. lungs are clear, abdomen soft,positive bowel sounds, denies pain at this time, all needs attended.
[2017-02-25] MEDS: ASPIRIN EC 81 MG TABLET.DR PO SCH (08:51)
[2017-02-25] MEDS: DONEPEZIL 5 MG TABLET PO SCH (08:51)
[2017-02-25] MEDS: CLOPIDOGREL BISULFATE 75 MG TABLET PO SCH (08:51)
[2017-02-25] MEDS: PANTOPRAZOLE 40 MG VIAL IV SCH (08:51)
[2017-02-25] MEDS: LORAZEPAM 1 MG TABLET PO SCH (08:56)
[2017-02-25] MEDS ORDERED: HYDROCHLOROTHIAZIDE 25 MG TABLET PO SCH (09:00)
[2017-02-25] MEDS: CARVEDILOL 6.25 MG TABLET PO SCH (09:00)
[2017-02-25] MEDS ORDERED: VALSARTAN 80 MG TABLET PO SCH (09:00)
--- NOTE | 2017-02-25 09:00 | NUR ---
ms springer breakfast served,due meds given,tolerated well.
--- NOTE | 2017-02-25 15:00 | NUR ---
ms rn was seen by dr. aryan luna/ orders made and carried out.
--- NOTE | 2017-02-25 16:00 | NUR ---
ms rn was seen by dr. aryan luna/ orders made and carried out.
--- NOTE | 2017-02-25 17:00 | NUR ---
ms gian hurst roof cement and paint maker helper discharge patient w/ order to have egd on monday in out patient, spoke w/ daughter Robbin, will order picker patient later.
[2017-02-25] MEDS ORDERED: ONDA4VIA30 PO (17:43)
[2017-02-25] MEDS ORDERED: CLOP75TA2 PO (17:43)
[2017-02-25] MEDS ORDERED: CARV6.252 PO (17:43)
--- NOTE | 2017-02-25 18:26 | NUR ---
ms rn patient went home accompanied by grand daughter, discharge instruction given and understood. will come on monday for outpatient egd procedure.
== END 2017-02-25 18:20 | disposition home or self-care (01) | DRG 392 ==
LOC: ER 16:19 → TELE 20:16 → MED 02-25 02:19
PROVIDERS: ADMIT Family Medicine; ATTEND Family Medicine
DX: K21.9 Gastro-esophageal reflux disease without esophagitis (principal); I25.10 Atherosclerotic heart disease of native coronary artery without angina pectoris; E78.5 Hyperlipidemia, unspecified; E66.9 Obesity, unspecified; E83.42 Hypomagnesemia; Z79.899 Other long term (current) drug therapy; I10 Essential (primary) hypertension; Z68.31 Body mass index [BMI] 31.0-31.9, adult; I25.2 Old myocardial infarction; Z95.5 Presence of coronary angioplasty implant and graft
CPT/HCPCS: 36415; 71010-TC; 71260-TC; 72193-TC; 74160-TC; 76705-TC; 80048-TC; 80053-TC; 80076-TC; 81000-TC; 83605-TC; 83690-TC; 83735-TC; 83880; 84100-TC; 84484-TC; 85025-TC; 85730-TC; 87040-TC; 87081-TC; 87086-TC; A4606; C9113; J1650; J2405; J3475; J7050; Q9967; Z7610

== ENCOUNTER 2017-02-27 07:36 | Day surgery (SDC) | payer MEDICARE, MEDICAID ==
[~2017-02-27 07:36] MED LIST changes: -ATEN25TA PO; +CARV6.252 PO; +CLOP75TA2 PO; +ONDA4VIA30 PO
[2017-02-27] MEDS ORDERED: IV SET PRIMARY 1 EA INFUS.SET MC ONE (08:16)
[2017-02-27] MEDS ORDERED: IV NS 0.9% 1,000 ML ONE (08:16)
== END 2017-02-27 10:05 | disposition home or self-care (01) ==
LOC: DS 07:36
PROVIDERS: ATTEND Internal Medicine Gastroenterology
DX: K21.9 Gastro-esophageal reflux disease without esophagitis (principal); I50.32 Chronic diastolic (congestive) heart failure; I42.8 Other cardiomyopathies; E66.01 Morbid (severe) obesity due to excess calories; Z68.36 Body mass index [BMI] 36.0-36.9, adult; I25.2 Old myocardial infarction; I25.10 Atherosclerotic heart disease of native coronary artery without angina pectoris; I10 Essential (primary) hypertension
CPT/HCPCS: 43239; 88305 ×4; 88313 ×2; 88342 ×2; J2704; J3490; J7030; Z7610

== ENCOUNTER 2019-01-21 16:29 | Outpatient (CLI) | payer MEDICARE, MEDICAID ==
[~2019-01-21 16:29] MED LIST changes: +ASPI-1152 PO; -ASPI-991 PO; +CLOP75TA15 PO; -CLOP75TA2 PO; -DONE5TAB3 PO; +DONE5TAB7 PO; +LORA-259 PO; -LORA1TAB82 PO; -ONDA4VIA30 PO; +ONDA4VIA52 PO
== END 2019-01-21 23:59 | disposition home or self-care (01) ==
LOC: RAD 16:29
PROVIDERS: ATTEND Internal Medicine Interventional Cardiology
DX: I70.0 Atherosclerosis of aorta (principal); M47.815 Spondylosis without myelopathy or radiculopathy, thoracolumbar region
CPT/HCPCS: 71046